=== PATIENT | male | born 1945 | race Caucasian/White ===

== ENCOUNTER 2018-03-18 10:37 | Inpatient (IN) | payer OTHER ==
[~2018-03-18] VITALS: Ht 177.8 cm; Wt 97.7 kg
[2018-03-18 11:19] LABS: PLATELET COUNT 365 x10^3mcL (130-400); RED CELL DISTRIBUTION WIDTH 14.4 % (11.5-14.5)
[2018-03-18 11:43] LABS: CALCIUM 8.6 mg/dL (8.5-10.1); CARBON DIOXIDE 25.2 mmol/L (21-32); CHLORIDE SERUM 105 mmol/L (98-107); CREATININE SERUM 2.1 mg/dL (0.7-1.3); GLUCOSE SERUM 137 mg/dL (74-106); POTASSIUM SERUM 4.2 mmol/L (3.5-5.1); SODIUM SERUM 138 mmol/L (136-145)
[2018-03-18 11:46] LABS: BAND NEUTROPHIL 9 % (0-10); BASOPHIL 0 % (0-2); MONOCYTE 6 % (0-7); SEGMENTED NEUTROPHILS 82 % (37-75)
[2018-03-18 11:47] LABS: PLATELET MORPHOLOGY PLATELETS NORMAL
[2018-03-18 11:48] LABS: ALKALINE PHOSPHATASE 82 U/L (46-116); ALT/SGPT 21 U/L (16-63); AST/SGOT 27 U/L (15-37); BILIRUBIN TOTAL 0.89 mg/dL (0.20-1.00); HDL CHOLESTEROL 46 mg/dL (40-60); TOTAL PROTEIN, SERUM 8.2 g/dL (6.4-8.2)
[2018-03-18 11:50] LABS: CHOLESTEROL 126 mg/dL (<200)
[2018-03-18 12:55] LABS: microscopic required? NO
[2018-03-18 13:11] LABS: urine erythrocyte NEGATIVE (NEGATIVE)
[2018-03-18] MEDS ORDERED: ELIQUIS5 MG PO (13:36)
[2018-03-18] MEDS ORDERED: GLUCOTROL10 MG PO (13:38)
[2018-03-18] MEDS ORDERED: NOR10 PO ×2 (13:39→13:41)
[2018-03-18] MEDS ORDERED: LANTUS SOLOS100 U/M1 SQ (13:40)
[2018-03-18] MEDS ORDERED: COLACE100 MG PO (13:40)
[2018-03-18] MEDS ORDERED: LIPI20 PO (13:41)
[2018-03-18] MEDS ORDERED: APAP500 MG PO (13:41)
[2018-03-18 15:31] VITALS: BP 113/43
[2018-03-18 18:04] VITALS: BP 107/48
[2018-03-18 20:59] VITALS: BP 127/53
[2018-03-19 06:04] VITALS: BP 111/38
[2018-03-19 06:33] LABS: T4(THYROXINE) 4.4 ug/dL (4.7-13.3)
[2018-03-19 07:07] LABS: PLATELET COUNT 312 x10^3mcL (130-400)
[2018-03-19 07:30] LABS: RED CELL DISTRIBUTION WIDTH 15.1 % (11.5-14.5)
[2018-03-19 09:24] VITALS: BP 109/48
[2018-03-19 09:50] LABS: ERYTHROCYTE SED RATE 56 mm/hr (0-20)
[2018-03-19 13:26] VITALS: BP 124/62
[2018-03-19 13:50] LABS: MONOCYTE 6 % (0-7); SEGMENTED NEUTROPHILS 60 % (37-75)
[2018-03-19 13:51] LABS: BAND NEUTROPHIL 31 % (0-10)
[2018-03-19 13:52] LABS: PLATELET MORPHOLOGY PLATELETS NORMAL; rbc morphology (normal/abnorm) NORMAL (NORMAL)
[2018-03-19 16:33] VITALS: BP 113/52
[2018-03-19 21:09] VITALS: BP 112/45
[2018-03-20 05:45] VITALS: BP 119/57
[2018-03-20 06:28] LABS: BASOPHIL % 0.2 % (0-2); PLATELET COUNT 268 x10^3mcL (130-400)
[2018-03-20 06:36] LABS: CALCIUM 8.3 mg/dL (8.5-10.1); CARBON DIOXIDE 25.2 mmol/L (21-32); CHLORIDE SERUM 106 mmol/L (98-107); CREATININE SERUM 1.8 mg/dL (0.7-1.3); GLUCOSE SERUM 161 mg/dL (74-106); POTASSIUM SERUM 4.5 mmol/L (3.5-5.1); SODIUM SERUM 137 mmol/L (136-145)
[2018-03-20 07:16] LABS: RED CELL DISTRIBUTION WIDTH 14.9 % (11.5-14.5)
[2018-03-20 09:05] LABS: RHEUMATOID ARTHRITIS FACTOR 14.1 IU/mL (0.0-13.9)
[2018-03-20 09:27] VITALS: BP 118/58
[2018-03-20 13:29] VITALS: BP 126/63
[2018-03-20 18:32] VITALS: BP 155/61
[2018-03-20 21:14] VITALS: BP 129/66
[2018-03-21 05:51] VITALS: BP 138/67
[2018-03-21 06:53] VITALS: Ht 177.8 cm; Wt 97.7 kg
[2018-03-21 10:07] VITALS: BP 119/68
[2018-03-21 12:38] VITALS: BP 138/68
[2018-03-21 17:51] VITALS: BP 134/68
[2018-03-21 18:14] VITALS: BP 134/68
[2018-03-21 20:16] VITALS: BP 117/56
[2018-03-22 05:51] VITALS: BP 109/60
[2018-03-22 09:19] VITALS: BP 134/63
[2018-03-22 12:25] VITALS: BP 134/63
[2018-03-22 12:44] LABS: RAPID PLASMA REAGIN Non Reactive (Non Reactive)
== END 2018-03-22 14:00 | disposition other institution (70) | DRG 871 ==
LOC: ED 10:37 → DU 13:34
PROVIDERS: Emergency Medicine; Internal Medicine
DX: A41.9 Sepsis, unspecified organism (principal); G93.41 Metabolic encephalopathy; I13.0 Hypertensive heart and chronic kidney disease with heart failure and stage 1 through stage 4 chronic kidney disease, or unspecified chronic kidney disease; Z66 Do not resuscitate; E78.5 Hyperlipidemia, unspecified; I50.9 Heart failure, unspecified; N18.9 Chronic kidney disease, unspecified; E11.22 Type 2 diabetes mellitus with diabetic chronic kidney disease; E11.65 Type 2 diabetes mellitus with hyperglycemia; D89.9 Disorder involving the immune mechanism, unspecified; I48.91 Unspecified atrial fibrillation; Z85.53 Personal history of malignant neoplasm of renal pelvis
CPT/HCPCS: 36600; 82962; 83880; 86431; 94150; J0696; J3490; J7030; J7040; J7620; Q0092